=== PATIENT | male | born 1985 | race Caucasian/White ===

== ENCOUNTER 2019-09-26 18:14 | Emergency (ER) | payer SELFPAY ==
[2019-09-26 18:23] VITALS: BP 128/70
--- NOTE | 2019-09-26 20:02 | ER Document Report ---
ED Medical Screen (RME) - General Chief Complaint: Hand Pain Stated Complaint: HAND INJURY Time Seen by Provider: 09/26/19 20:00 Mode of Arrival: Ambulatory Information source: Patient Notes: Patient with right hand injury that occurred 10 days ago. Patient is concerned that maybe a piece of wood cut his hand although he is uncertain exactly what happened. 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 Patient states his tetanus is up-to-date. I have greeted and performed a rapid initial assessment of this patient. A comprehensive ED assessment and evaluation of the patient, analysis of test results and completion of the medical decision making process will be conducted by additional ED providers. - Related Data Allergies/Adverse Reactions: No Known Allergies Allergy (Unverified 09/26/19 19:48) Past Medical History - Social History Chew tobacco use (# tins/day): No Frequency of alcohol use: Rare Drug Abuse: None Physical Exam - Vital signs Vitals: Temp Pulse Resp BP Pulse Ox 98.7 F 82 18 128/70 H 98 09/26/19 18:22 09/26/19 18:22 09/26/19 18:22 09/26/19 18:22 09/26/19 18:22 - General Notes: Swelling and erythema to the right fifth finger extending to the dorsum of the hand. Patient with open wound to the webspace between the right fourth and fifth finger Course - Vital Signs Vital signs: Temp Pulse Resp BP Pulse Ox 98.7 F 82 18 128/70 H 98 09/26/19 18:22 09/26/19 18:22 09/26/19 18:22 09/26/19 18:22 09/26/19 18:22
[2019-09-26 20:43] LABS: ABSOLUTE EOSINOPHILS # (AUTO) 0.1 10^3/uL (0.0-0.6); ABSOLUTE LYMPHOCYTES (AUTO) 2.2 10^3/uL (0.5-4.7); ABSOLUTE MONOCYTES (AUTO) 0.6 10^3/uL (0.1-1.4); ABSOLUTE NEUT (AUTO) 3.4 10^3/uL (1.7-8.2); BASOPHILS % (AUTO) 0.6 % (0-2); EOSINOPHILS % (AUTO) 1.5 % (0-6); HEMATOCRIT 37.1 % (37.9-51.0); HEMOGLOBIN 12.7 g/dL (13.5-17.0); LYMPHOCYTES % (AUTO) 34.9 % (13-45); MEAN CORPUSCULAR HEMOGLOBIN 32.9 pg (27.0-33.4); MEAN CORPUSCULAR HGB CONC 34.2 g/dL (32.0-36.0); MEAN CORPUSCULAR VOLUME 96 fl (80-97); PLATELET COUNT 173 10^3/uL (150-450); RED BLOOD COUNT 3.85 10^6/uL (4.35-5.55); RED CELL DISTRIBUTION WIDTH 12.3 % (11.5-14.0); TOTAL CELLS COUNTED % (AUTO) 100 %; WHITE BLOOD COUNT 6.4 10^3/uL (4.0-10.5)
--- NOTE | 2019-09-26 21:02 | RADIOLOGY REPORT (SQ) ---
EXAM DESCRIPTION: Right hand study CLINICAL HISTORY: 34 years Male hand infection COMPARISON: None TECHNIQUE: Three views of the right hand. FINDINGS: Mild subluxation first metacarpophalangeal joint more likely chronic and can be correlated clinically. Includes minimal calcification and joint space. Other joint spaces are unremarkable. No suspicious focal bone abnormality. IMPRESSION: Minimal chronic-appearing subluxation at first metacarpophalangeal joint. No obvious acute bone or soft tissue abnormalities.
[2019-09-26 21:06] LABS: ALBUMIN 3.6 g/dL (3.5-5.0); ALKALINE PHOSPHATASE 52 U/L (38-126); ASPARTATE AMINO TRANSFERASE 114 U/L (17-59); BILIRUBIN,TOTAL 0.3 mg/dL (0.2-1.3); BLOOD UREA NITROGEN 17 mg/dL (7-20); CARBON DIOXIDE 33 mmol/L (22-30); CHLORIDE 103 mmol/L (98-107); GLUCOSE 87 mg/dL (75-110); POTASSIUM 4.2 mmol/L (3.6-5.0); TOTAL PROTEIN 6.3 g/dL (6.3-8.2)
[2019-09-26 21:08] LABS: ANION GAP 1 (5-19)
[2019-09-26] MEDS ORDERED: CEFTRIAXONE INJ 1000 MG VIAL IM ONE (22:45)
[2019-09-26] MEDS ORDERED: SULFAMETHOXAZOLE/TRIMETHOPRIM 800-160 MG TABLET PO ONE (22:48)
[2019-09-26] MEDS ORDERED: CEPHALEXIN 500 MG CAPSULE PO ONE ×2 (22:48→23:21)
[2019-09-26] MEDS ORDERED: GENTAMICIN SULFATE INJ 80 MG/2 ML VIAL IM ONE (22:48)
[2019-09-26] MEDS ORDERED: OXYCODONE-ACETAMINOPHEN 5-325 MG TABLET PO ONE (22:48)
--- NOTE | 2019-09-26 22:50 | ER Document Report ---
ED General - General Chief Complaint: Hand Pain Stated Complaint: HAND INJURY Time Seen by Provider: 09/26/19 20:00 Mode of Arrival: Ambulatory Notes: 09/26/19 19:52 - ED Nursing Note by VINICIUS BARRETT [facility] Num: [id number] : 1985 Patient Age: 34 pt alert, ambulated with steady gait to [facility]. states he had a cut inbetween his pinky and fourth digit approx 10 days ago. 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 pinky to right hand appears swollen, and red, warm to touch. pt states decrease ROM to pinky to right hand. pt speaking in complete sentences with even unlabored respirations noted, appears in no acute distress Initialized on 09/26/19 19:52 - END OF NOTE Kathleen notes Patient with right hand injury that occurred 10 days ago. Patient is concerned that maybe a piece of wood cut his hand although he is uncertain exactly what happened. 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 Patient states his tetanus is up-to-date. my notes 34-year-old male arrives with his boss. Patient is scheduled for a flight to [place] tomorrow at 07 30. 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 X- ray taken today reveals no obvious gas or abscess formation and no obvious fractures to his hand. Patient denies any prior history of similar events. Patient is right-handed. He denies any history of MRSA. He denies any allergies to sulfa drugs or to cephalosporins. TRAVEL OUTSIDE OF THE [place] IN LAST 30 DAYS: No - Related Data Allergies/Adverse Reactions: No Known Allergies Allergy (Unverified 09/26/19 19:48) Past Medical History - General Information source: Patient - Social History Smoking Status: Current Every Day Smoker Cigarette use (# per day): Yes Chew tobacco use (# tins/day): No Smoking Education Provided: Yes Frequency of alcohol use: Rare Drug Abuse: None Lives with: Family Family History: Reviewed & Not Pertinent Patient has homicidal ideation: No Review of Systems - Review of Systems Constitutional: No symptoms reported EENT: No symptoms reported Cardiovascular: No symptoms reported Respiratory: No symptoms reported Gastrointestinal: No symptoms reported Genitourinary: No symptoms reported Male Genitourinary: No symptoms reported Musculoskeletal: See HPI, Joint swelling Skin: See HPI, Other - Erythema and swelling to the proximal finger of fifth little finger of the right hand with abscess between the web of the fourth and fifth finger. Hematologic/Lymphatic: No symptoms reported Neurological/Psychological: No symptoms reported Physical Exam - Vital signs Vitals: Temp Pulse Resp BP Pulse Ox 98.7 F 82 18 128/70 H 98 09/26/19 18:22 09/26/19 18:22 09/26/19 18:22 09/26/19 18:22 09/26/19 18:22 Interpretation: Normal - General General appearance: Appears well - HEENT Head: Normocephalic, Atraumatic Eyes: Normal Pupils: PERRL Sinus: Normal Nasal: Normal Mouth/Lips: Normal Mucous membranes: Normal Pharynx: Normal Neck: Normal - Respiratory Respiratory status: No respiratory distress Chest status: Nontender Breath sounds: Normal Chest palpation: Normal - Cardiovascular Rhythm: Regular Heart sounds: Normal auscultation Murmur: No - Abdominal Inspection: Normal Distension: No distension Bowel sounds: Normal Tenderness: Nontender Organomegaly: No organomegaly - Rectal Prostate: Other - deferred - Genitourinary Scrotum: Other - deferred - Back Back: Normal - Extremities General upper extremity: Tender, Edema - of right hand General lower extremity: Normal inspection - Neurological Neuro grossly intact: Yes Cognition: Normal Orientation: AAOx4 [place] Coma Scale Eye Opening: Spontaneous Mary Coma Scale Verbal: Oriented Mary Coma Scale Motor: Obeys Commands Mary Coma Scale Total: 15 Speech: Normal Motor strength normal: LUE, RUE, LLE, RLE Sensory: Normal - Psychological Associated symptoms: Normal affect - Skin Skin Temperature: Warm Skin Moisture: Dry Skin Turgor: Edematous - right hand 5th prox finger to pip with erythema and 1 cm abscess in web between 4th/5th fingers Skin irregularity: Lesion Course - Vital Signs Vital signs: Temp Pulse Resp BP Pulse Ox 98.7 F 82 18 128/70 H 98 09/26/19 18:22 09/26/19 18:22 09/26/19 18:22 09/26/19 18:22 09/26/19 18:22 - Laboratory Result Diagrams: 09/26/19 20:30 09/26/19 20:30 Laboratory results interpreted by me: 09/26/19 09/26/19 20:30 20:30 RBC 3.85 L Hgb 12.7 L Hct 37.1 L Carbon Dioxide 33 H Anion Gap 1 L AST 114 H - Diagnostic Test Radiology reviewed: Reports reviewed Critical Care Note - Critical Care Note Total time excluding time spent on procedures (mins): 60 Discharge - Discharge Clinical Impression: Cellulitis and abscess of hand Condition: Good Disposition: HOME, SELF-CARE Instructions: Trimethoprim-Sulfa ([facility]), Cephalexin ([facility]) Additional Instructions: Take 1 pint of water and mix 1 teaspoon of Epsom salt and soak hand for 10 minutes twice a day and then pat dry after each soaking. May apply bacitracin to wound as needed. Take your Keflex and Bactrim tablets as prescribed. Also take prednisone tablet 1 tablet daily for 5 days. Prescriptions: Sulfamethoxazole/Trimethoprim [Bactrim Ds Tablet] 1 tab PO BID 10 Days #20 tablet Prednisone [Deltasone 20 mg Tablet] 1 tab PO DAILY 5 Days #5 tablet Cephalexin Monohydrate [Keflex 500 mg Capsule] 500 mg PO BID 10 Days #20 capsule
[2019-09-26] MEDS ORDERED: LIDOCAINE 1% INJ-PF (10 MG/ML) 30 ML SDV ONE (22:57)
== END 2019-09-26 23:25 | disposition home or self-care (01) ==
LOC: ER 18:14
DX: L03.113 Cellulitis of right upper limb (principal); L02.511 Cutaneous abscess of right hand; F17.210 Nicotine dependence, cigarettes, uncomplicated
CPT/HCPCS: 99285; 96372; 36415; 85025; 80053; 73130; J1580; J0696